=== PATIENT | male | born 1945 | race Caucasian/White ===

== ENCOUNTER 2020-10-27 19:31 | Inpatient (IN) | payer MEDICARE, OTHER ==
[~2020-10-27] VITALS: Ht 203.2 cm; Wt 136.7 kg
--- NOTE | 2020-10-27 19:40 | NUR ---
PT SONG FROM [facility]. PER EMS PT HAD AN EPISODE OF "FUZZINESS AND EXPRESSIVE APHASIA" TODAY AROUND 1630 THAT THEN STOPPED UNTIL APPROX 1740 AND THEN STARTED AGAIN. PER PT THE SYMPTOMS HAVE COME AND GO SINCE THEN. PT STATES HIS BIGGEST CONCERN IS THE EXPRESSIVE APHASIA. HE IS OTHERWISE NEUROLOGICALLY INTACT. NO WEAKNESS OR SENSORY ISSUES AT THIS TIME. PT RESTING IN [facility], MONITORING IN PLACE, EKG DONE UPON ARRIVAL, DR. CHÁVEZ AT BEDSIDE FOR ROQUE CARRASQUILLO AT THIS TIME, [facility]. PT'S AND SONS AT BEDSIDE AT THIS TIME.
[2020-10-27] MEDS ORDERED: ASPIRIN 81 MG TABLET CHEW PO ONE (20:00)
[2020-10-27] MEDS ORDERED: ASPIRIN 81 MG TABLET CHEW ONE (20:03)
[2020-10-27] MEDS ORDERED: GABA600T7 PO (20:38)
[2020-10-27] MEDS ORDERED: ACETAMINOPHEN 650 MG/20.3 ML UDC PO PRN (21:30)
[2020-10-27] MEDS ORDERED: OXYcodone 5 MG/5 ML ORAL.SOL UDC PO PRN (21:30)
[2020-10-27] MEDS ORDERED: ENOXAPARIN 40 MG/0.4 ML SQ SCH (21:30)
[2020-10-27 21:48] VITALS: BP 147/77
[2020-10-27 23:22] LABS: INTERNATIONAL NORMALIZED RATIO 1.07 (0.93-1.1); PROTHROMBIN TIME 11.4 Seconds (9.6-11.5)
[2020-10-28 00:37] VITALS: BP 160/80
[2020-10-28] MEDS ORDERED: ASPIRIN 81 MG TABLET EC PO SCH (06:00)
[2020-10-28 06:16] LABS: CHOL/HDL RATIO 2.9; LDL/HDL RATIO 1.4 (0.5-3.0)
[2020-10-28 07:53] VITALS: BP 151/76
[2020-10-28 14:45] VITALS: BP 152/87
[2020-10-28] MEDS ORDERED: ATOR20TA PO ×2 (16:21)
[2020-10-28] MEDS ORDERED: ASPI81TA45 PO (16:21)
[2020-10-28] MEDS ORDERED: ATORVASTATIN 80 MG TABLET PO SCH (21:00)
[2020-10-29] MEDS ORDERED: ATOR20TA PO (10:49)
== END 2020-10-28 17:54 | disposition home or self-care (01) | DRG 66 ==
LOC: ED 20:00 → 4EST 20:12 → SUATTDRO 20:32
PROVIDERS: ADMIT Internal Medicine; ATTEND Hospitalist
DX: I63.512 Cerebral infarction due to unspecified occlusion or stenosis of left middle cerebral artery (principal); G89.29 Other chronic pain; R47.01 Aphasia; I10 Essential (primary) hypertension; I35.0 Nonrheumatic aortic (valve) stenosis; G62.9 Polyneuropathy, unspecified; R42 Dizziness and giddiness; Z88.0 Allergy status to penicillin; Z91.041 Radiographic dye allergy status
CPT/HCPCS: 36415; 70551; 80061; 83036; 84443; 85610; 93005; 93306; 93356; 93880; 96372; G0378; J1650; 92523-GN